=== PATIENT | male | born 1970 | race Caucasian/White ===

== ENCOUNTER 2016-10-30 08:36 | Inpatient (IN) | payer OTHER ==
[2016-10-30 10:07] VITALS: BMI 29.0
--- NOTE | 2016-10-30 15:27 | HP ---
COWS - Scale Resting Pulse: 0= [place] 80 or Below Sweatin= Chills/Flushing Restless Observation: 3= Extraneous Movement Pupil Size: 0= Normal to Room Light Bone or Joint Aches: 4=Acute Joint/Muscle Pain Runny Nose/ Eye Tearin= None GI Upset > 30mins: 1= Stomach Cramp Tremor Observation: 2= Slight Tremor Visible Yawning Observation: 1= 1-2x During Session Anxiety or Irritability: 2=Irritable/Anxious Goose Flesh Skin: 0=Smooth Skin COWS Score: 14 CIWA Score - CIWA Score Nausea/Vomitin-No Nausea/No Vomiting Muscle Tremors: 4-Moderate,w/Arms Extend Anxiety: 4-Mod. Anxious/Guarded Agitation: 4-Moderately Restless Paroxysmal Sweats: 1-Minimal Palms Moist Orientation: 0-Oriented Tacttile Disturbances: 3-Moderate Itch/Numb/Burn Auditory Disturbances: 0-None Visual Disturbances: 0-None Headache: 0-None Present CIWA-Ar Total Score: 16 Admission ROS S - HPI Chief Complaint: DETOX TX FOR HEROIN AND ALCOHOL DEPENDENCE Allergies/Adverse Reactions: Allergies Allergy/AdvReac Type Severity Reaction Status Date / Time No Known Allergies Allergy Verified 10/30/16 13:06 History of Present Illness: 46 Y/O H/M WITH A HX OF ALCOHOL, HEROIN,COCAINE AND MARIJUANA DEPENDENCE SEEKING DETOX TX Exam Limitations: No Limitations - Ebola screening Have you traveled outside of the country in the last 21 days: No Have you had contact with anyone from an Ebola affected area: No Have you been sick,other than usual withdrawal symptoms: No Do you have a fever: No - Review of Systems Constitutional: Chills, Loss of Appetite, Night Sweats, Changes in sleep, Unintentional Wgt. Loss EENT: reports: Blurred Vision Respiratory: reports: No Symptoms reported Cardiac: reports: Lightheadedness GI: reports: Diarrhea, Nausea, Poor Appetite, Vomiting : reports: No Symptoms Reported Musculoskeletal: reports: Back Pain Integumentary: reports: Rash (BOTTOCKS) Neuro: reports: Tremors, Unsteady Gait, Dizziness Endocrine: reports: No Symptoms Reported Hematology: reports: No Symptoms Reported Psychiatric: reports: Orientated x3, Agitated, Anxious Other Systems: Reviewed and Negative Patient History - Patient Medical History Hx Anemia: No Hx Asthma: No Hx Chronic Obstructive Pulmonary Disease (COPD): No Hx Cancer: No Hx Cardiac Disorders: No Hx Congestive Heart Failure: No Hx Hypertension: No Hx Hypercholesterolemia: No Hx Pacemaker: No HX Cerebrovascular Accident: No Hx Seizures: No Hx Diabetes: No Hx Gastrointestinal Disorders: No Hx Genitourinary Disorders: No Hx Sexually Transmitted Disorders: No (DENIES) Hx Renal Disease (ESRD): No Hx Thyroid Disease: No Hx Human Immunodeficiency Virus (HIV): No (NEGATIVE HX) Hx Hepatitis C: No (DENIES) Hx Depression: No Hx Suicide Attempt: No (DENIES) Hx Bipolar Disorder: No Hx Schizophrenia: No - Patient Surgical History Past Surgical History: Yes Hx Neurologic Surgery: No Hx Cataract Extraction: No Hx Cardiac Surgery: No Hx Lung Surgery: No Hx Breast Surgery: No Hx Breast Biopsy: No Hx Abdominal Surgery: No Hx Appendectomy: No Hx Cholecystectomy: No Hx Genitourinary Surgery: No Hx Orthopedic Surgery: No Other Surgical History: polyps removed from throat at 15 years old Anesthesia Reaction: No - PPD History Previous Implant?: Yes Documented Results: Positive w/o proof PPD to be Administered?: No - Reproductive History Patient is a Female of Child Bearing Age (11 -55 yrs old): No (MALE) Patient : (N/C) - Smoking Cessation Smoking history: Current every day smoker Have you smoked in the past 12 months: No Aproximately how many cigarettes per day: 10 Cigars Per Day: 0 Hx Chewing Tobacco Use: No Initiated information on smoking cessation: Yes 'Breaking Loose' booklet given: 10/30/16 - Substance & Tx. History Hx Alcohol Use: Yes (VODKA/BEER) Hx Substance Use: Yes (HEROIN/COCAINE/MARIJUANA) Substance Use Type: Alcohol, Cocaine, Heroin, Marijuana Hx Substance Use Treatment: Yes (LAST TX AT [facility] DETOX) - Substances Abused Heroin Route: Inhalation Frequency: Daily Amount used: 2 bags Age of first use: 45 Date of Last Use: 10/28/16 Crack Route: Smoking Frequency: Daily Amount used: $100 Age of first use: 15 Date of Last Use: 10/29/16 Alcohol-vodka/beer Route: Oral Frequency: Daily Amount used: 2 pts./3-4 6 pks. Age of first use: 15 Date of Last Use: 10/29/16 Marijuana Route: Smoking Frequency: Daily Amount used: $20 Age of first use: 13 Date of Last Use: 10/30/16 Family Disease History - Family Disease History Family Disease History: Heart Disease: Mother (HTN), Other: Father (ESTRANGED), Mother Admission Physical Exam [facility] - Vital Signs Vital Signs: Vital Signs - 24 hr 10/30/16 10:04 Temperature 97.8 F Pulse Rate 70 Respiratory 18 Rate Blood Pressure 118/78 - Physical General Appearance: Yes: Moderate Distress, Irritable, Anxious HEENTM: Yes: EOMI, Normocephalic, ARSALAN, Pharynx Normal Respiratory: Yes: Chest Non-Tender, Lungs Clear, Normal Breath Sounds, No Respiratory Distress Neck: Yes: Supple, Trachea in good position Breast: Yes: Breast Exam Deferred Cardiology: Yes: Regular Rhythm, Regular Rate, S1, S2 Abdominal: Yes: Normal Bowel Sounds, Non Tender, Soft Genitourinary: Yes: Other (N/C) Back: Yes: Within Normal Limits Musculoskeletal: Yes: full range of Motion, Gait Steady Extremities: Yes: Normal Range of Motion, Non-Tender Neurological: Yes: 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 II-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 NML intact, Fully Oriented, Alert, Motor Strength 5/5 Integumentary: Yes: Dry, Warm Lymphatic: Yes: Within Normal Limits - Diagnostic (1) Alcohol dependence with uncomplicated withdrawal Current Visit: Yes Status: Acute (2) Cannabis dependence, uncomplicated Current Visit: Yes Status: Chronic (3) Cocaine dependence, uncomplicated Current Visit: Yes Status: Chronic (4) Nicotine dependence Current Visit: Yes Status: Acute Qualifiers: Nicotine product type: cigarettes Substance use status: in withdrawal Qualified Code(s): F17.213 - Nicotine dependence, cigarettes, with withdrawal (5) Opioid dependence with withdrawal Current Visit: Yes Status: Acute Cleared for Admission [facility] - Detox or Rehab [facility] Level of Care: Medically Managed Detox Regimen/Protocol: Methadone/Librium [facility] Breath Alcohol Content Breath Alcohol Content: 0 Urine Drug Screen - Results Drug Screen Negative: No Urine Drug Screen Results: THC-Marijuana, ALICE-Cocaine, OPI-Opiates
[2016-10-30] MEDS ORDERED: P-EPHED 60MG/TRIPROLIDI 2.5MG TABLET PO PRN (15:34)
[2016-10-30] MEDS ORDERED: IBUPROFEN 400 MG TABLET (FP) PO PRN (15:34)
[2016-10-30] MEDS ORDERED: hydrOXYzine PAMOATE 25 MG CAPSULE (FP) PO PRN (15:34)
[2016-10-30] MEDS ORDERED: MAGNESIUM HYDROX 2400MG/30ML ORAL SUSPENSION 30 ML CUP PO PRN (15:34)
[2016-10-30] MEDS ORDERED: ACETAMINOPHEN 325 MG TABLET (FP) PO PRN (15:34)
[2016-10-30] MEDS ORDERED: guaiFENesin/D-METHORPHAN HB 10 ML UNIT-DOSE CUPS PO PRN (15:34)
[2016-10-30] MEDS ORDERED: chlordiazePOXIDE HCL 25 MG CAPSULE PO PRN (15:34)
[2016-10-30] MEDS ORDERED: MAGNESIUM CITRATE 300 ML BOTTLE PO PRN (15:34)
[2016-10-30] MEDS ORDERED: MAG HYDROX/AL HYDROX/SIMETH 30 ML UNIT-DOSE CUP PO PRN (15:34)
[2016-10-30] MEDS ORDERED: diphenhydrAMINE HCL 50 MG CAPSULE PO PRN (15:34)
[2016-10-30] MEDS ORDERED: MENTHOL/PHENOL 1 EACH UD MM PRN (15:34)
[2016-10-30] MEDS ORDERED: chlordiazePOXIDE HCL 25 MG CAPSULE PO ONE (15:46)
[2016-10-30] MEDS ORDERED: METHADONE HCL 10 MG TABLET (FOR DETOX USE ONLY) PO ONE ×2 (15:47→23:00)
[2016-10-30 17:16] LABS: MCH 31.1 pg (25.7-33.7); MCHC 33.5 g/dl (32.0-35.9); MEAN CELL VOLUME 92.9 fl (80-96); MEAN PLT VOLUME 10.6 fl (7.5-11.1); PLATELET COUNT 221 K/MM3 (134-434); RDW 13.7 % (11.9-15.9); WHITE BLOOD COUNT 8.6 K/mm3 (4.0-10.0)
[2016-10-30] MEDS: chlordiazePOXIDE HCL 25 MG CAPSULE PO SCH ×2 (17:26→22:15)
[2016-10-30] MEDS: NICOTINE 14 MG/24 HOURS TOPICAL PATCH TD SCH (17:26)
[2016-10-30 17:48] LABS: URINE APPEARANCE CLEAR; URINE BILIRUBIN NEGATIVE (NEGATIVE); URINE BLOOD NEGATIVE (NEGATIVE); URINE COLOR YELLOW; URINE GLUCOSE (UA) 1+ (NEGATIVE); URINE KETONE TRACE (NEGATIVE); URINE LEUK ESTERASE NEGATIVE (NEGATIVE); URINE NITRITE NEGATIVE (NEGATIVE); URINE PROTEIN NEGATIVE (NEGATIVE)
[2016-10-30 17:57] LABS: ALBUMIN 3.7 g/dl (3.4-5.0); ALK PHOS 70 U/L (45-117); ANION GAP 8 (8-16); BILIRUBIN,TOTAL 0.5 mg/dL (0.2-1.0); CALCIUM 8.8 mg/dL (8.5-10.1); CO2 26 mmol/L (21-32); CREATININE 0.9 mg/dL (0.7-1.3); GLUCOSE,RANDOM 86 mg/dL (74-106); SGOT/AST 17 U/L (15-37); SGPT/ALT 27 U/L (12-78); TOT PROT 7.1 g/dl (6.4-8.2)
[2016-10-30 18:47] LABS: HIV 1 & 2 AB NEGATIVE; HIV 1 AGp24 NEGATIVE
[2016-10-30] MEDS: THIAMINE HCL 100 MG TABLET (FP) PO SCH (22:15)
[2016-10-31] MEDS: chlordiazePOXIDE HCL 25 MG CAPSULE PO SCH ×4 (05:14→22:38)
--- NOTE | 2016-10-31 08:29 | CONSULT ---
[facility] Psychiatric Consult - Data Date of interview: 10/31/16 Admission source: [facility] Identifying data: This is 46 years old male with no psychiatric hospitalization history intoxicated with: Alcohol, Crack, Heroin, Cannabis, Nicotine, history of PCP abuse as well Substance Abuse History: - Smoking Cessation. Smoking history: Current every day smoker. Have you smoked in the past 12 months: No. Aproximately how many cigarettes per day: 10. Cigars Per Day: 0. Hx Chewing Tobacco Use: No. Initiated information on smoking cessation: Yes. 'Breaking Loose' booklet given : 10/30/16. - Substance & Tx. History. Hx Alcohol Use: Yes (VODKA/BEER). Hx Substance Use: Yes (HEROIN/COCAINE/MARIJUANA). Substance Use Type: Alcohol, Cocaine, Heroin, Marijuana. Hx Substance Use Treatment: Yes (LAST TX AT [facility] DETOX). - Substances Abused. Heroin. Route: Inhalation. Frequency: Daily. Amount used: 2 bags. Age of first use: 45. Date of Last Use: . Crack. Route: Smoking. Frequency: Daily. Amount used: $100. Age of first use: 15. Date of Last Use: 10/29/16. Alcohol-vodka/beer. Route: Oral. Frequency: Daily. Amount used: 2 pts./3-4 6 pks. Age of first use: 15. Date of Last Use: 10/29/16. Marijuana. Route: Smoking. Frequency: Daily. Amount used: $20. Age of first use: 13. Date of Last Use: 10/30/16 Medical History: Denies significant medical issues Psychiatric History: Patient reprots history of anxiety, preoccupied with insomnia asking for Ambien 10mg po qhs Physical/Sexual Abuse/Trauma History: Denies Additional Comment: Ambien 10mg po qhs Mental Status Exam - Mental Status Exam Alert and Oriented to: Person Cognitive Function: Fair Patient Appearance: Well Groomed Mood: Apprehensive Affect: Mood Congruent Patient Behavior: Cooperative Speech Pattern: Appropriate Voice Loudness: Normal Thought Process: Goal Oriented Thought Disorder: Being Controlled Hallucinations: Denies Suicidal Ideation: Denies Homicidal Ideation: Denies Insight/Judgement: Fair Sleep: Difficulty falling asleep Appetite: Fair Muscle strength/Tone: Normal Gait/Station: Normal Additional Comments: Ambien 10mg po qhs Psychiatric Findings - Problem List ([place] 1, 2,3) (1) Alcohol dependence with uncomplicated withdrawal Current Visit: Yes Status: Acute (2) Nicotine dependence Current Visit: Yes Status: Acute Qualifiers: Nicotine product type: cigarettes Substance use status: in withdrawal Qualified Code(s): F17.213 - Nicotine dependence, cigarettes, with withdrawal (3) Opioid dependence with withdrawal Current Visit: Yes Status: Acute (4) Cannabis dependence, uncomplicated Current Visit: Yes Status: Chronic (5) Cocaine dependence, uncomplicated Current Visit: Yes Status: Chronic (6) PCP abuse, continuous Current Visit: No Status: Acute (7) Drug-induced mood disorder Current Visit: Yes Status: Acute - Initial Treatment Plan Initial Treatment Plan: Ambien 10mg po qhs
[2016-10-31] MEDS ORDERED: METHADONE HCL 10 MG TABLET (FOR DETOX USE ONLY) PO SCH (10:00)
[2016-10-31] MEDS: PRENATAL VITAMINS W/ FOLIC ACID TABLET (FP) PO SCH (10:15)
[2016-10-31] MEDS: NICOTINE 14 MG/24 HOURS TOPICAL PATCH TD SCH (10:16)
[2016-10-31] MEDS ORDERED: ZOLPIDEM TARTRATE 5 MG TABLET PO PRN (10:24)
--- NOTE | 2016-10-31 11:51 | PN ---
S CIWA - CIWA Score Nausea/Vomitin Muscle Tremors: 3 Anxiety: 3 Agitation: 3 Paroxysmal Sweats: 1-Minimal Palms Moist Orientation: 0-Oriented Tacttile Disturbances: 1-Very Mild Itch/Numbness Auditory Disturbances: 1-Very Mild Visual Disturbances: 1-Very Mild Sensitivity Headache: 2-Mild CIWA-Ar Total Score: 18 BHS COWS - Scale Resting Pulse: 0= [place] 80 or Below Sweatin= Chills/Flushing Restless Observation: 3= Extraneous Movement Pupil Size: 1= Pupils >than Normal Bone or Joint Aches: 2= Severe Diffuse Aches Runny Nose/ Eye Tearin= Runny Nose/Eyes GI Upset > 30mins: 2= Nausea/Diarrhea Tremor Observation of Outstretched Hands: 2= Slight Tremor Visible Yawning Observation: 1= 1-2x During Session Anxiety or Irritability: 2=Irritable/Anxious Goose Flesh Skin: 0=Smooth Skin COWS Score: 16 S Progress Note (SOAP) Subjective: ALERT,IRRITABLE,ANXIOUS,INTERRUPTED SLEEP,PAIN IN THE BODY AND BACK,TREMOR Objective: 10/31/16 11:49 Vital Signs Temperature 97.8 F 10/31/16 10:00 Pulse Rate 69 10/31/16 10:00 Respiratory Rate 18 10/31/16 10:00 Blood Pressure 101/74 10/31/16 10:00 O2 Sat by Pulse Oximetry (%) EKG NSR,NORMAL ECG Laboratory Last Values WBC 8.6 K/mm3 (4.0-10.0) 10/30/16 15:00 RBC 4.71 M/mm3 (4.00-5.60) 10/30/16 15:00 Hgb 14.6 GM/dL (11.7-16.9) 10/30/16 15:00 Hct 43.8 % (35.4-49) 10/30/16 15:00 MCV 92.9 fl (80-96) 10/30/16 15:00 MCH 31.1 pg (25.7-33.7) 10/30/16 15:00 MCHC 33.5 g/dl (32.0-35.9) 10/30/16 15:00 RDW 13.7 % (11.9-15.9) 10/30/16 15:00 Plt Count 221 K/MM3 (134-434) 10/30/16 15:00 MPV 10.6 fl (7.5-11.1) 10/30/16 15:00 Sodium 141 mmol/L (136-145) 10/30/16 15:00 Potassium 4.4 mmol/L (3.5-5.1) 10/30/16 15:00 Chloride 107 mmol/L (98-107) 10/30/16 15:00 Carbon Dioxide 26 mmol/L (21-32) 10/30/16 15:00 Anion Gap 8 (8-16) 10/30/16 15:00 BUN 15 mg/dL (7-18) 10/30/16 15:00 Creatinine 0.9 mg/dL (0.7-1.3) 10/30/16 15:00 Creat Clearance w eGFR > 60 (>60) 10/30/16 15:00 Random Glucose 86 mg/dL (74-106) 10/30/16 15:00 Calcium 8.8 mg/dL (8.5-10.1) 10/30/16 15:00 Total Bilirubin 0.5 mg/dL (0.2-1.0) 10/30/16 15:00 AST 17 U/L (15-37) D 10/30/16 15:00 ALT 27 U/L (12-78) 10/30/16 15:00 Alkaline Phosphatase 70 U/L (45-117) 10/30/16 15:00 Total Protein 7.1 g/dl (6.4-8.2) 10/30/16 15:00 Albumin 3.7 g/dl (3.4-5.0) 10/30/16 15:00 Urine Color Yellow 10/30/16 17:06 Urine Appearance Clear 10/30/16 17:06 Urine pH 5.0 (5.0-8.0) 10/30/16 17:06 Ur Specific [place] >= 1.030 (1.005-1.025) H 10/30/16 17:06 Urine Protein Negative (NEGATIVE) 10/30/16 17:06 Urine Glucose (UA) 1+ (NEGATIVE) H 10/30/16 17:06 Urine Ketones Trace (NEGATIVE) H 10/30/16 17:06 Urine Blood Negative (NEGATIVE) 10/30/16 17:06 Urine Nitrite Negative (NEGATIVE) 10/30/16 17:06 Urine Bilirubin Negative (NEGATIVE) 10/30/16 17:06 Urine Urobilinogen 2.0 mg/dL (0.2-1.0) 10/30/16 17:06 Ur Leukocyte Esterase Negative (NEGATIVE) 10/30/16 17:06 RPR Titer Nonreactive (NONREACTIVE) 10/30/16 15:00 HIV 1&2 Antibody Screen Negative 10/30/16 14:00 HIV P24 Antigen Negative 10/30/16 14:00 Assessment: 10/31/16 11:50 WITHDRAWAL SYMPTOM Plan: CONTINUE DETOX
--- NOTE | 2016-10-31 16:37 | EKG ---
Test Reason : Blood Pressure : / mmHG Vent. Rate : 066 BPM Atrial Rate : 066 BPM P-R Int : 142 ms QRS Dur : 090 ms QT Int : 392 ms P-R-T Axes : 048 037 026 degrees QTc Int : 410 ms NORMAL SINUS RHYTHM NORMAL ECG NO PREVIOUS ECGS AVAILABLE Confirmed by TAMAR FROST MD ([id number]) on 10/31/2016 4:37:19 PM Referred By: Derek Neville Confirmed By:TAMAR FROST MD
[2016-10-31] MEDS: THIAMINE HCL 100 MG TABLET (FP) PO SCH (22:38)
[2016-10-31] MEDS: ZOLPIDEM TARTRATE 10 MG TABLET (PARK CARE ONLY) PO PRN (22:39)
[2016-11-01] MEDS: chlordiazePOXIDE HCL 25 MG CAPSULE PO SCH ×2 (05:52→10:22)
[2016-11-01] MEDS ORDERED: TRIMETHOBENZAMIDE HCL 200MG/2ML INJ IM PRN (08:53)
[2016-11-01] MEDS: NICOTINE 14 MG/24 HOURS TOPICAL PATCH TD SCH (10:22)
[2016-11-01] MEDS: METHADONE HCL 5 MG TABLET (FOR DETOX USE ONLY) PO SCH (10:22)
[2016-11-01] MEDS: PRENATAL VITAMINS W/ FOLIC ACID TABLET (FP) PO SCH (10:22)
--- NOTE | 2016-11-01 11:43 | PN ---
[facility] CIWA - CIWA Score Nausea/Vomitin-Int. Nausea w/Dry Heave Muscle Tremors: 2 Anxiety: 3 Agitation: 3 Paroxysmal Sweats: 3 Orientation: 0-Oriented Tacttile Disturbances: 1-Very Mild Itch/Numbness Auditory Disturbances: 0-None Visual Disturbances: 0-None Headache: 0-None Present CIWA-Ar Total Score: 16 BHS COWS - Scale Resting Pulse: 0= [place] 80 or Below Sweatin= Chills/Flushing Restless Observation: 1= Difficult to Sit Still Pupil Size: 1= Pupils >than Normal Bone or Joint Aches: 1= Mild Discomfort Runny Nose/ Eye Tearin= Nasal Congestion GI Upset > 30mins: 3= Vomiting/Diarrhea Tremor Observation of Outstretched Hands: 2= Slight Tremor Visible Yawning Observation: 0= None Anxiety or Irritability: 2=Irritable/Anxious Goose Flesh Skin: 0=Smooth Skin COWS Score: 12 S Progress Note (SOAP) Subjective: interrupted sleep, sweats, vomiting Objective: 11/01/16 11:42 Vital Signs Temperature 98.1 F 11/01/16 10:00 Pulse Rate 80 11/01/16 10:00 Respiratory Rate 18 11/01/16 10:00 Blood Pressure 106/64 11/01/16 10:00 O2 Sat by Pulse Oximetry (%) Laboratory Tests 10/30/16 10/30/16 10/30/16 14:00 15:00 15:00 WBC 8.6 RBC 4.71 Hgb 14.6 Hct 43.8 MCV 92.9 MCH 31.1 MCHC 33.5 RDW 13.7 Plt Count 221 MPV 10.6 Sodium 141 Potassium 4.4 Chloride 107 Carbon Dioxide 26 Anion Gap 8 BUN 15 Creatinine 0.9 Creat Clearance w eGFR > 60 Random Glucose 86 Calcium 8.8 Total Bilirubin 0.5 AST 17 D ALT 27 Alkaline Phosphatase 70 Total Protein 7.1 Albumin 3.7 Urine Color Urine Appearance Urine pH Ur Specific [place] Urine Protein Urine Glucose (UA) Urine Ketones Urine Blood Urine Nitrite Urine Bilirubin Urine Urobilinogen Ur Leukocyte Esterase RPR Titer HIV 1&2 Antibody Screen Negative HIV P24 Antigen Negative 10/30/16 10/30/16 15:00 17:06 WBC RBC Hgb Hct MCV MCH MCHC RDW Plt Count MPV Sodium Potassium Chloride Carbon Dioxide Anion Gap BUN Creatinine Creat Clearance w eGFR Random Glucose Calcium Total Bilirubin AST ALT Alkaline Phosphatase Total Protein Albumin Urine Color Yellow Urine Appearance Clear Urine pH 5.0 Ur Specific [place] >= 1.030 H Urine Protein Negative Urine Glucose (UA) 1+ H Urine Ketones Trace H Urine Blood Negative Urine Nitrite Negative Urine Bilirubin Negative Urine Urobilinogen 2.0 Ur Leukocyte Esterase Negative RPR Titer Nonreactive HIV 1&2 Antibody Screen HIV P24 Antigen pt aox3 vomiting Assessment: 11/01/16 11:42 withdrawal sx;s Plan: cont. detox increase fluids zofran prn pt refused im tigan
[2016-11-01] MEDS: chlordiazePOXIDE 5 MG CAPSULE PO SCH ×2 (17:24→22:13)
[2016-11-01] MEDS: ONDANSETRON *ODT* 4 MG TABLET SL PRN (18:55)
[2016-11-01] MEDS: NICOTINE POLACRILEX 2 MG GUM BC PRN (21:08)
[2016-11-01] MEDS: ZOLPIDEM TARTRATE 10 MG TABLET (PARK CARE ONLY) PO PRN (22:13)
[2016-11-01] MEDS: THIAMINE HCL 100 MG TABLET (FP) PO SCH (22:14)
[2016-11-02] MEDS: chlordiazePOXIDE 5 MG CAPSULE PO SCH ×2 (06:15→11:23)
[2016-11-02] MEDS: ONDANSETRON *ODT* 4 MG TABLET SL PRN (11:23)
[2016-11-02] MEDS: METHADONE HCL 5 MG TABLET (FOR DETOX USE ONLY) PO SCH (11:23)
[2016-11-02] MEDS: PRENATAL VITAMINS W/ FOLIC ACID TABLET (FP) PO SCH (11:23)
[2016-11-02] MEDS: NICOTINE 14 MG/24 HOURS TOPICAL PATCH TD SCH (11:24)
--- NOTE | 2016-11-02 14:49 | PN ---
[facility]HS Progress Note (SOAP) Subjective: alert,irritable,anxious,interrupted sleep,tremor,pain in the body and back Objective: 11/02/16 14:48 Vital Signs Temperature 97.0 F L 11/02/16 14:27 Pulse Rate 74 11/02/16 14:27 Respiratory Rate 18 11/02/16 14:27 Blood Pressure 121/70 11/02/16 14:27 O2 Sat by Pulse Oximetry (%) Assessment: 11/02/16 14:48 withdrawal symptom Plan: continue detox
[2016-11-02] MEDS ORDERED: chlordiazePOXIDE 5 MG CAPSULE ONE ×2 (17:15→21:44)
[2016-11-02] MEDS: chlordiazePOXIDE HCL 10 MG CAPSULE PO SCH ×2 (20:14→22:16)
[2016-11-02] MEDS: ZOLPIDEM TARTRATE 10 MG TABLET (PARK CARE ONLY) PO PRN (22:16)
[2016-11-02] MEDS: THIAMINE HCL 100 MG TABLET (FP) PO SCH (22:16)
[2016-11-03] MEDS ORDERED: chlordiazePOXIDE 5 MG CAPSULE ONE ×2 (04:31→09:02)
[2016-11-03] MEDS: chlordiazePOXIDE HCL 10 MG CAPSULE PO SCH ×2 (05:59→10:18)
[2016-11-03] MEDS ORDERED: METHADONE HCL 10 MG TABLET (FOR DETOX USE ONLY) PO SCH (10:00)
[2016-11-03] MEDS: PRENATAL VITAMINS W/ FOLIC ACID TABLET (FP) PO SCH (10:17)
[2016-11-03] MEDS: NICOTINE 14 MG/24 HOURS TOPICAL PATCH TD SCH (10:19)
--- NOTE | 2016-11-03 11:28 | PN ---
S Progress Note (SOAP) Subjective: ALERT,IRRITABLE,ANXIOUS,INTERRUPTED SLEEP Objective: 11/03/16 11:27 Vital Signs Temperature 98.1 F 11/03/16 10:00 Pulse Rate 82 11/03/16 10:00 Respiratory Rate 18 11/03/16 10:00 Blood Pressure 122/62 11/03/16 10:00 O2 Sat by Pulse Oximetry (%) Assessment: 11/03/16 11:27 WITHDRAWAL SYMPTOM Plan: CONTINUE DETOX,DISCHARGE IN AM
[2016-11-03] MEDS: NICOTINE POLACRILEX 2 MG GUM BC PRN (19:19)
[2016-11-03] MEDS: ZOLPIDEM TARTRATE 10 MG TABLET (PARK CARE ONLY) PO PRN (22:20)
[2016-11-03] MEDS: THIAMINE HCL 100 MG TABLET (FP) PO SCH (22:20)
[2016-11-03] MEDS: LOPERAMIDE HCL 2 MG CAPSULE PO PRN (22:45)
[2016-11-04] MEDS ORDERED: METHADONE HCL 5 MG TABLET (FOR DETOX USE ONLY) PO SCH (06:00)
[2016-11-04] MEDS: LOPERAMIDE HCL 2 MG CAPSULE PO PRN (06:13)
--- NOTE | 2016-11-04 08:55 | DS ---
[facility] Detox Discharge Summary Admission Date: 10/30/16 Discharge Date: 11/04/16 - History Present History: Alcohol Dependence, Cannabis Dependence, Cocaine Dependence, Opioid Dependence, Pcp Dependence - Physical Exam Results Vital Signs: Vital Signs Temperature 97.2 F L 11/04/16 06:19 Pulse Rate 75 11/04/16 06:19 Respiratory Rate 18 11/04/16 06:19 Blood Pressure 107/63 11/04/16 06:19 O2 Sat by Pulse Oximetry (%) - Treatment Hospital Course: Detox Protocol Followed, Detoxed Safely, Responded well, Discharged Condition Good, Rehab Referral Accepted - Medication Discharge Medications: Ambulatory Orders NK [No Known Home Medication] 10/30/16 - Diagnosis (1) Alcohol dependence with uncomplicated withdrawal Current Visit: Yes Status: Chronic (2) Drug-induced mood disorder Current Visit: Yes Status: Chronic (3) Nicotine dependence Current Visit: Yes Status: Chronic Qualifiers: Nicotine product type: cigarettes Substance use status: uncomplicated Qualified Code(s): F17.210 - Nicotine dependence, cigarettes, uncomplicated (4) Opioid dependence with withdrawal Current Visit: Yes Status: Chronic (5) Cannabis dependence, uncomplicated Current Visit: Yes Status: Chronic (6) Cocaine dependence, uncomplicated Current Visit: Yes Status: Chronic (7) PCP abuse, continuous Current Visit: Yes Status: Chronic (8) Sprain of wrist Current Visit: Yes Status: Acute Qualifiers: Encounter type: initial encounter Laterality: right Qualified Code( s): S63.501A - Unspecified sprain of right wrist, initial encounter - AMA Did Patient Leave Against Medical Advice: No ([facility])
[2016-11-04 10:08] VITALS: BP 105/71; PULSE 86; TEMP 96.8
== END 2016-11-04 08:58 | disposition home or self-care (01) | DRG 773 ==
LOC: YASAS 08:36 → Y6N 13:44
PROVIDERS: ADMIT Internal Medicine Addiction Medicine; ATTEND Internal Medicine Addiction Medicine
PROC: HZ2ZZZZ Detoxification Services for Substance Abuse Treatment (ICD-10-PCS; principal; 2016-10-30)
DX: F11.23 Opioid dependence with withdrawal (principal); F10.230 Alcohol dependence with withdrawal, uncomplicated; F14.20 Cocaine dependence, uncomplicated; F12.20 Cannabis dependence, uncomplicated; F16.10 Hallucinogen abuse, uncomplicated; F17.210 Nicotine dependence, cigarettes, uncomplicated; F19.24 Other psychoactive substance dependence with psychoactive substance-induced mood disorder
CPT/HCPCS: 36415; 80053; 81003; 85027; 86593; 87389; 93005; 93010

== ENCOUNTER 2018-07-19 19:24 | Inpatient (IN) | payer OTHER ==
--- NOTE | 2018-07-19 22:13 | HP ---
CIWA Score Nausea/Vomitin Muscle Tremors: 4-Moderate,w/Arms Extend Anxiety: 4-Mod. Anxious/Guarded Agitation: 4-Moderately Restless Paroxysmal Sweats: 3 Orientation: 2-Disoriented Date<2 days Tacttile Disturbances: 2-Mild Itch/Numbness/Burn Auditory Disturbances: 0-None Visual Disturbances: 0-None Headache: 2-Mild CIWA-Ar Total Score: 24 - Admission Criteria OASAS Guidelines: Admission for Medically Managed Detox: Requires at least one of the followin. CIWA greater than 12 2. Seizures within the past 24 hours 3. Delirium tremens within the past 24 hours 4. Hallucinations within the past 24 hours 5. Acute intervention needed for co occurring medical disorder 6. Acute intervention needed for co occurring psychiatric disorder 7. Severe withdrawal that cannot be handled at a lower level of care (continued vomiting, continued diarrhea, abnormal vital signs) requiring intravenous medication and/or fluids 8. Patient presents the following: CIWA greater than 12 Admission Criteria Met: Admission criteria met Admission ROS [facility] Chief Complaint: C/O WITHDRAWAL SX'S. SEEKING DETOX TXMENT Allergies/Adverse Reactions: Allergies Allergy/AdvReac Type Severity Reaction Status Date / Time No Known Allergies Allergy Verified 10/30/16 13:06 History of Present Illness: 47 Y.O. MALE WITH HX/O ALCOHOLISM HERE FOR DETOX. CLIENT IS SELF REFERRED. KNOWN TO THE PROGRAM,LAST ADMISSION 2016. PRESENTS TODAY WITH C/O WORSENING WITHDRAWAL SX'S. CIWA 24. HE ALSO REPORTS ILLICIT SUBSTANCE ABUSE TO INCLUDE CANNABIS, COCAINE, AND METHAMPHETAMINES. DENIES HX/O SZ, SI/HI. DOES REPORT AVH WHEN HE IS "HIGH". PRESENTLY DENIES. DENIES ANY SIGNIFICANT PERIOD OF SOBRIETY/ CLEAN TIME. LIVES WITH MOTHER. DENIES LEGALS. Exam Limitations: No Limitations - Ebola screening Have you traveled outside of the country in the last 21 days: No (N) Have you had contact with anyone from an Ebola affected area: No Do you have a fever: No - Review of Systems Constitutional: Chills, Loss of Appetite, Night Sweats, Changes in sleep EENT: reports: No Symptoms Reported Respiratory: reports: Other (HX/O TB WITH TXMENT) Cardiac: reports: No Symptoms Reported GI: reports: Poor Appetite, Poor Fluid Intake, Vomiting : reports: Other (HX/O RENAL CALCULI) Musculoskeletal: reports: Joint Pain (CHRONIC) Integumentary: reports: Rash (BILAT BUTTOCKS ASSOCIATED WITH PRURITIS,) Neuro: reports: Headache, Tremors (FLET) Endocrine: reports: No Symptoms Reported Hematology: reports: No Symptoms Reported Psychiatric: reports: Anxious, Depressed (INTERMITTENT) Other Systems: Reviewed and Negative Patient History - Patient Medical History Hx Anemia: No Hx Asthma: No Hx Chronic Obstructive Pulmonary Disease (COPD): No Hx Cancer: No Hx Cardiac Disorders: No Hx Congestive Heart Failure: No Hx Hypertension: No Hx Hypercholesterolemia: No Hx Pacemaker: No HX Cerebrovascular Accident: No Hx Seizures: No Hx Diabetes: No Hx Gastrointestinal Disorders: No Hx Genitourinary Disorders: No Hx Sexually Transmitted Disorders: No Hx Renal Disease (ESRD): No Hx Thyroid Disease: No Hx Human Immunodeficiency Virus (HIV): No Hx Hepatitis C: No Hx Depression: No Hx Suicide Attempt: No Hx Bipolar Disorder: No Hx Schizophrenia: No - Patient Surgical History Past Surgical History: Yes Hx Neurologic Surgery: No Hx Cataract Extraction: No Hx Cardiac Surgery: No Hx Lung Surgery: No Hx Breast Surgery: No Hx Breast Biopsy: No Hx Abdominal Surgery: No Hx Appendectomy: No Hx Cholecystectomy: No Hx Genitourinary Surgery: No Hx Section: No Hx Orthopedic Surgery: No Other Surgical History: polyps removed from throat at 15 years old Anesthesia Reaction: No - PPD History Previous Implant?: Yes Documented Results: Negative w/o proof Implanted On Prior R Admission?: No PPD to be Administered?: No - Smoking Cessation Smoking history: Current every day smoker Have you smoked in the past 12 months: No Aproximately how many cigarettes per day: 20 Cigars Per Day: 0 Hx Chewing Tobacco Use: No Initiated information on smoking cessation: Yes 'Breaking Loose' booklet given: 07/19/18 - Substance & Tx. History Hx Alcohol Use: Yes Hx Substance Use: Yes Substance Use Type: Alcohol, Cocaine, Marijuana Hx Substance Use Treatment: Yes ([facility]) - Substances abused Alcohol Other (specify): VODKA Substance route: Oral Frequency: Daily Amount used: 3 PINTS Age of first use: 14 Date of last use: 07/19/18 (1 PINT) Family Disease History - Family Disease History Family Disease History: Heart Disease: Mother (HTN), Other: Father (ESTRANGED), Mother Admission Physical Exam [facility] - Physical General Appearance: Yes: Mild Distress, Tremorous (FELT), Anxious, Other ( FLUSHED FACE) HEENTM: Yes: EOMI, Normocephalic, Normal Voice, ARSALAN, Pharynx Normal Respiratory: Yes: Chest Non-Tender, Lungs Clear, Normal Breath Sounds, No Respiratory Distress, No Accessory Muscle Use Neck: Yes: No masses,lesions,Nodules, Supple, Trachea in good position Breast: Yes: Breast Exam Deferred Cardiology: Yes: Regular Rhythm, Regular Rate, S1, S2 Abdominal: Yes: Non Tender, Soft, Increased Bowel Sounds Genitourinary: Yes: Within Normal Limits Back: Yes: Normal Inspection Musculoskeletal: Yes: full range of Motion, Gait Steady Extremities: Yes: Normal Capillary Refill, Normal Range of Motion, Non-Tender, Tremors (FELT) Neurological: Yes: boat loader II-XII NML intact, Fully Oriented, Alert, Motor Strength 5/5, Depressed Affect Integumentary: Yes: Dry, Warm (FLUSHED) Lymphatic: Yes: Within Normal Limits - Diagnostic (1) At risk for dehydration due to poor fluid intake Current Visit: Yes Status: Acute (2) Alcohol dependence with uncomplicated withdrawal Current Visit: Yes Status: Acute (3) Cannabis dependence, uncomplicated Current Visit: Yes Status: Acute (4) Cocaine dependence, uncomplicated Current Visit: Yes Status: Acute (5) Drug-induced mood disorder Current Visit: Yes Status: Acute (6) Nicotine dependence Current Visit: Yes Status: Chronic Qualifiers: Nicotine product type: cigarettes Substance use status: uncomplicated Qualified Code(s): F17.210 - Nicotine dependence, cigarettes, uncomplicated (7) PCP abuse, continuous Current Visit: Yes Status: Acute Cleared for Admission [facility] - Detox or Rehab [facility] Level of Care: Medically Managed Detox Regimen/Protocol: Librium Claeared for Rehab Admission: No Breathalyzer - Breathalyzer Breathalyzer: 0 Urine Drug Screen - Test Device Lot number: [id number] Expiration date: 07/12/19 - Control Is test valid?: Yes - Results Drug screen NEGATIVE: No Urine drug screen results: THC-Marijuana, ALICE-Cocaine, MET-Methamphetamine Inpatient Rehab Admission - Rehab Decision to Admit Inpatient rehab admission?: No
[2018-07-19] MEDS ORDERED: MAGNESIUM CITRATE 300 ML BOTTLE PO PRN (22:21)
[2018-07-19] MEDS ORDERED: METHOCARBAMOL 500 MG TABLET PO PRN (22:21)
[2018-07-19] MEDS ORDERED: IBUPROFEN 400 MG TABLET (FP) PO PRN (22:21)
[2018-07-19] MEDS ORDERED: DICYCLOMINE HCL 10 MG CAPSULE PO PRN (22:21)
[2018-07-19] MEDS ORDERED: MENTHOL/PHENOL 1 EACH UD MM PRN (22:21)
[2018-07-19] MEDS ORDERED: P-EPHED 60MG/TRIPROLIDI 2.5MG TABLET PO PRN (22:21)
[2018-07-19] MEDS ORDERED: NICOTINE POLACRILEX 2 MG GUM BUC PRN (22:21)
[2018-07-19] MEDS ORDERED: MAG HYDROX/AL HYDROX/SIMETH 30 ML UNIT-DOSE CUP PO PRN (22:21)
[2018-07-19] MEDS ORDERED: MAGNESIUM HYDROX 2400MG/30ML ORAL SUSPENSION 30 ML CUP PO PRN (22:21)
[2018-07-19] MEDS ORDERED: ACETAMINOPHEN 325 MG TABLET (FP) PO PRN ×2 (22:21)
[2018-07-19] MEDS ORDERED: BISMUTH SUBSALICYLATE 524 MG/30 ML UD PO PRN (22:21)
[2018-07-19] MEDS ORDERED: guaiFENesin 200 MG/10 ML 10 ML UNIT-DOSE CUPS PO PRN (22:21)
[2018-07-19] MEDS ORDERED: chlordiazePOXIDE HCL 25 MG CAPSULE PO PRN (22:21)
[2018-07-19] MEDS ORDERED: ONDANSETRON *ODT* 4 MG TABLET SL PRN (22:21)
[2018-07-19] MEDS ORDERED: hydrOXYzine PAMOATE 25 MG CAPSULE (FP) PO PRN (22:21)
[2018-07-19 22:29] VITALS: BMI 32.5
[2018-07-19] MEDS: chlordiazePOXIDE HCL 25 MG CAPSULE PO SCH (22:49)
[2018-07-19] MEDS: MELATONIN 5 MG TABLETS PO PRN (22:49)
[2018-07-20] MEDS: chlordiazePOXIDE HCL 25 MG CAPSULE PO SCH ×4 (06:29→22:17)
--- NOTE | 2018-07-20 09:43 | PN ---
S CIWA - CIWA Score Nausea/Vomitin-Mild Nausea/No Vomiting Muscle Tremors: 4-Moderate,w/Arms Extend Anxiety: 4-Mod. Anxious/Guarded Agitation: 4-Moderately Restless Paroxysmal Sweats: 1-Minimal Palms Moist Orientation: 3-Disoriented Date>2 days Tacttile Disturbances: 0-None Auditory Disturbances: 0-None Visual Disturbances: 0-None Headache: 2-Mild CIWA-Ar Total Score: 19 [facility] Progress Note (SOAP) Subjective: longest sobriety 30 days, encourage the patient to engage with 12 step support group with commitment patient is willing to connect with 12 step meeting upon discharge Objective: 07/20/18 09:43 Vital Signs Temperature 98.2 F 07/20/18 09:39 Pulse Rate 85 07/20/18 09:39 Respiratory Rate 18 07/20/18 09:39 Blood Pressure 104/65 07/20/18 09:39 O2 Sat by Pulse Oximetry (%) 07/20/18 09:43 lab pending Assessment: 07/20/18 09:44 alcohol withdrawal sx Plan: continue detox
[2018-07-20] MEDS: NICOTINE 21 MG/24 HOURS TOPICAL PATCH TD SCH (10:09)
[2018-07-20] MEDS: PRENATAL VITAMINS W/ FOLIC ACID TABLET (FP) PO SCH (10:09)
[2018-07-20 10:19] LABS: HEMATOCRIT 44.4 % (35.4-49); HEMOGLOBIN 15.1 GM/dL (11.7-16.9); MCHC 34.1 g/dl (32.0-35.9); MEAN PLT VOLUME 9.2 fl (7.5-11.1); PLATELET COUNT 250 K/MM3 (134-434); RBC 4.88 M/mm3 (4.00-5.60); RDW 13.6 % (11.9-15.9); WHITE BLOOD COUNT 8.5 K/mm3 (4.0-10.0)
[2018-07-20 10:22] LABS: ALBUMIN 3.8 g/dl (3.4-5.0); ALK PHOS 76 U/L (45-117); ANION GAP 6 MMOL/L (8-16); BILIRUBIN,TOTAL 0.7 mg/dL (0.2-1); BLOOD UREA NITROGEN 19 mg/dL (7-18); CALCIUM 8.6 mg/dL (8.5-10.1); CHLORIDE 106 mmol/L (98-107); CO2 30 mmol/L (21-32); CREATININE 1.1 mg/dL (0.55-1.3); GLUCOSE,RANDOM 94 mg/dL (74-106); POTASSIUM 4.2 mmol/L (3.5-5.1); SGOT/AST 17 U/L (15-37); SGPT/ALT 22 U/L (13-61); SODIUM 142 mmol/L (136-145); TOT PROT 7.3 g/dl (6.4-8.2)
--- NOTE | 2018-07-20 13:49 | CONSULT ---
[facility] Psychiatric Consult - Data Date of interview: 07/20/18 Admission source: [facility] Identifying data: Readmission to [facility] for this 47 y/o male self- referred for detoxification treatment (cannabis, alcohol, cocaine). Examined on . 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 Substance Abuse History: Confirmed by patient in this session. Mr Bowman declares that he " binges " on alchol + drugs. " I don't necessarily use on a daily basis ". Started using " everything " at age 13. Sporadic use of phencyclidine and ecstasy (self-report). Details in current [facility] report as follows : Smoking history: Current every day smoker. Have you smoked in the past 12 months: No. Aproximately how many cigarettes per day: 20. Cigars Per Day: 0. Hx Chewing Tobacco Use: No. Initiated information on smoking cessation : Yes. 'Breaking Loose' booklet given: 07/19/18. - Substance & Tx. History. Hx Alcohol Use: Yes. Hx Substance Use: Yes. Substance Use Type: Alcohol, Cocaine, Marijuana. Hx Substance Use Treatment: Yes ([facility]). - Substances abused. Alcohol. Other (specify): VODKA. Substance route: Oral. Frequency : Daily. Amount used: 3 PINTS. Age of first use: 14. Date of last use: (1 PINT) Medical History: Patient endorses good general health. distant history of surgery (removal of laryngeal polyps at age 15). Psychiatric History: Patient denies history of psychiatric hospitalizations or OPD care. No reported history of suicide attempts. Physical/Sexual Abuse/Trauma History: Patient reports a heavy history of incarceration (20 years cumulatively) for various offenses related to violence ( armed robbery). Not on parole or probation. Additional Comment: Urine drug screen results: THC-Marijuana, ALICE-Cocaine, MET- Methamphetamine. Noted. Mental Status Exam - Mental Status Exam Alert and Oriented to: Time, Place, Person Cognitive Function: Good Patient Appearance: Well Groomed (tattoos on both arms + forearms) Mood: Nervous, Withdrawn Affect: Mood Congruent, Constricted Patient Behavior: Fatigued, Cooperative Speech Pattern: Clear, Appropriate Voice Loudness: Normal Thought Process: Goal Oriented Thought Disorder: Not Present Hallucinations: Denies Suicidal Ideation: Denies Homicidal Ideation: Denies Insight/Judgement: Poor Sleep: Well Appetite: Good Muscle strength/Tone: Normal Gait/Station: Normal Psychiatric Findings - Problem List ([place] 1, 2,3) (1) Alcohol dependence with uncomplicated withdrawal Current Visit: Yes Status: Acute (2) Cannabis dependence, uncomplicated Current Visit: Yes Status: Chronic (3) Cocaine dependence, uncomplicated Current Visit: Yes Status: Chronic (4) Drug-induced mood disorder Current Visit: Yes Status: Chronic (5) Nicotine dependence Current Visit: Yes Status: Chronic Qualifiers: Nicotine product type: cigarettes Substance use status: uncomplicated Qualified Code(s): F17.210 - Nicotine dependence, cigarettes, uncomplicated - Initial Treatment Plan Initial Treatment Plan: Psychiatric interview conducted with students in attendance (with patient's permission). Psychoeducation. Sleep hygiene. Detoxification. Support. Relapse prevention : discussed with the patient. AA/NA meetings. Rehabilitation recommended by patient declines. Made aware of importance of lifestyle changes + drug abstinence. Observation.
[2018-07-20] MEDS ORDERED: THIAMINE HCL 100 MG TABLET (FP) PO SCH (22:00)
[2018-07-20] MEDS: MELATONIN 5 MG TABLETS PO PRN (22:17)
[2018-07-21] MEDS: chlordiazePOXIDE HCL 25 MG CAPSULE PO SCH ×2 (06:57→10:16)
[2018-07-21] MEDS: PRENATAL VITAMINS W/ FOLIC ACID TABLET (FP) PO SCH (10:16)
[2018-07-21] MEDS: NICOTINE 21 MG/24 HOURS TOPICAL PATCH TD SCH (10:17)
--- NOTE | 2018-07-21 10:50 | PN ---
S CIWA - CIWA Score Nausea/Vomitin-Mild Nausea/No Vomiting Muscle Tremors: 4-Moderate,w/Arms Extend Anxiety: 3 Agitation: 2 Paroxysmal Sweats: 1-Minimal Palms Moist Orientation: 2-Disoriented Date<2 days Tacttile Disturbances: 0-None Auditory Disturbances: 0-None Visual Disturbances: 0-None Headache: 1-Very Mild CIWA-Ar Total Score: 14 [facility] Progress Note (SOAP) Subjective: feeling better today resting on bed able to sleep throughout the night Objective: 07/21/18 10:47 Vital Signs Temperature 97.4 F L 07/21/18 09:01 Pulse Rate 90 07/21/18 09:01 Respiratory Rate 20 07/21/18 09:01 Blood Pressure 114/74 07/21/18 09:01 O2 Sat by Pulse Oximetry (%) Laboratory Last Values WBC 8.5 K/mm3 (4.0-10.0) 07/20/18 07:00 RBC 4.88 M/mm3 (4.00-5.60) 07/20/18 07:00 Hgb 15.1 GM/dL (11.7-16.9) 07/20/18 07:00 Hct 44.4 % (35.4-49) 07/20/18 07:00 MCV 91.0 fl (80-96) 07/20/18 07:00 MCH 31.0 pg (25.7-33.7) 07/20/18 07:00 MCHC 34.1 g/dl (32.0-35.9) 07/20/18 07:00 RDW 13.6 % (11.9-15.9) 07/20/18 07:00 Plt Count 250 K/MM3 (134-434) 07/20/18 07:00 MPV 9.2 fl (7.5-11.1) D 07/20/18 07:00 Sodium 142 mmol/L (136-145) 07/20/18 07:00 Potassium 4.2 mmol/L (3.5-5.1) 07/20/18 07:00 Chloride 106 mmol/L (98-107) 07/20/18 07:00 Carbon Dioxide 30 mmol/L (21-32) 07/20/18 07:00 Anion Gap 6 MMOL/L (8-16) L 07/20/18 07:00 BUN 19 mg/dL (7-18) H 07/20/18 07:00 Creatinine 1.1 mg/dL (0.55-1.3) 07/20/18 07:00 Creat Clearance w eGFR 71.75 (>60) 07/20/18 07:00 Random Glucose 94 mg/dL (74-106) 07/20/18 07:00 Calcium 8.6 mg/dL (8.5-10.1) 07/20/18 07:00 Total Bilirubin 0.7 mg/dL (0.2-1) 07/20/18 07:00 AST 17 U/L (15-37) 07/20/18 07:00 ALT 22 U/L (13-61) 07/20/18 07:00 Alkaline Phosphatase 76 U/L (45-117) 07/20/18 07:00 Total Protein 7.3 g/dl (6.4-8.2) 07/20/18 07:00 Albumin 3.8 g/dl (3.4-5.0) 07/20/18 07:00 RPR Titer Nonreactive (NONREACTIVE) 07/20/18 07:00 lab noted Assessment: 07/21/18 10:49 alcohol withdrawal sx Plan: continue detox
[2018-07-21 13:27] VITALS: BP 109/76; PULSE 86; TEMP 98.6
--- NOTE | 2018-07-21 14:13 | DS ---
[facility] Detox Discharge Summary Admission Date: 07/19/18 Discharge Date: 07/21/18 - History Present History: Alcohol Dependence Additional Comments: 47 years old male admitted on 07/19/18 for alcohol withdrawal stabilization after lunch and napping patient wants to leave the detox alert no acute distress denies suicidal ideation Pertinent Past History: aftercare [place] discuss risks of alcohol misuse strong recommend 12 step community self help group - Physical Exam Results Vital Signs: Vital Signs Temperature 98.6 F 07/21/18 13:26 Pulse Rate 86 07/21/18 13:26 Respiratory Rate 18 07/21/18 13:26 Blood Pressure 109/76 07/21/18 13:26 O2 Sat by Pulse Oximetry (%) Pertinent Admission Physical Exam Findings: alcohol withdrawal sx Laboratory Last Values WBC 8.5 K/mm3 (4.0-10.0) 07/20/18 07:00 RBC 4.88 M/mm3 (4.00-5.60) 07/20/18 07:00 Hgb 15.1 GM/dL (11.7-16.9) 07/20/18 07:00 Hct 44.4 % (35.4-49) 07/20/18 07:00 MCV 91.0 fl (80-96) 07/20/18 07:00 MCH 31.0 pg (25.7-33.7) 07/20/18 07:00 MCHC 34.1 g/dl (32.0-35.9) 07/20/18 07:00 RDW 13.6 % (11.9-15.9) 07/20/18 07:00 Plt Count 250 K/MM3 (134-434) 07/20/18 07:00 MPV 9.2 fl (7.5-11.1) D 07/20/18 07:00 Sodium 142 mmol/L (136-145) 07/20/18 07:00 Potassium 4.2 mmol/L (3.5-5.1) 07/20/18 07:00 Chloride 106 mmol/L (98-107) 07/20/18 07:00 Carbon Dioxide 30 mmol/L (21-32) 07/20/18 07:00 Anion Gap 6 MMOL/L (8-16) L 07/20/18 07:00 BUN 19 mg/dL (7-18) H 07/20/18 07:00 Creatinine 1.1 mg/dL (0.55-1.3) 07/20/18 07:00 Creat Clearance w eGFR 71.75 (>60) 07/20/18 07:00 Random Glucose 94 mg/dL (74-106) 07/20/18 07:00 Calcium 8.6 mg/dL (8.5-10.1) 07/20/18 07:00 Total Bilirubin 0.7 mg/dL (0.2-1) 07/20/18 07:00 AST 17 U/L (15-37) 07/20/18 07:00 ALT 22 U/L (13-61) 07/20/18 07:00 Alkaline Phosphatase 76 U/L (45-117) 07/20/18 07:00 Total Protein 7.3 g/dl (6.4-8.2) 07/20/18 07:00 Albumin 3.8 g/dl (3.4-5.0) 07/20/18 07:00 RPR Titer Nonreactive (NONREACTIVE) 07/20/18 07:00 lab noted - Treatment Hospital Course: Detox Protocol Followed, Responded well Patient has Accepted a Rehab Referral to: [facility] - Medication Discharge Medications: Ambulatory Orders Omeprazole 40 gm PO DAILY 07/20/18 - Diagnosis (1) Alcohol dependence with uncomplicated withdrawal Current Visit: Yes Status: Acute (2) Nicotine dependence Current Visit: Yes Status: Acute Qualifiers: Nicotine product type: cigarettes Substance use status: in withdrawal Qualified Code(s): F17.213 - Nicotine dependence, cigarettes, with withdrawal - AMA Did Patient Leave Against Medical Advice: Yes
[2018-07-21] MEDS ORDERED: chlordiazePOXIDE HCL 10 MG CAPSULE PO PRN (23:00)
[2018-07-21] MEDS ORDERED: chlordiazePOXIDE HCL 10 MG CAPSULE PO SCH (23:00)
[2018-07-22] MEDS ORDERED: chlordiazePOXIDE HCL 10 MG CAPSULE PO SCH (23:00)
== END 2018-07-21 14:00 | disposition left against medical advice (07) | DRG 770 ==
LOC: YASAS 19:24 → Y3N 22:32
PROVIDERS: ADMIT Surgery; ATTEND Surgery
PROC: HZ2ZZZZ Detoxification Services for Substance Abuse Treatment (ICD-10-PCS; principal; 2018-07-19)
DX: F10.230 Alcohol dependence with withdrawal, uncomplicated (principal); F14.20 Cocaine dependence, uncomplicated; F12.20 Cannabis dependence, uncomplicated; F16.10 Hallucinogen abuse, uncomplicated; F17.213 Nicotine dependence, cigarettes, with withdrawal; F19.24 Other psychoactive substance dependence with psychoactive substance-induced mood disorder
CPT/HCPCS: 36415; 71046-TC-FY; 80053; 85027; 86593

== ENCOUNTER 2018-12-08 20:41 | Inpatient (IN) | payer OTHER ==
[2018-12-08 21:29] VITALS: BMI 30.3
--- NOTE | 2018-12-08 21:55 | HP ---
COWS - Scale Pupil Size: 0= Normal to Room Light CIWA Score Nausea/Vomitin Muscle Tremors: 4-Moderate,w/Arms Extend Anxiety: 4-Mod. Anxious/Guarded Agitation: 4-Moderately Restless Paroxysmal Sweats: 1-Minimal Palms Moist Orientation: 3-Disoriented Date>2 days Tacttile Disturbances: 0-None Auditory Disturbances: 0-None Visual Disturbances: 0-None Headache: 0-None Present CIWA-Ar Total Score: 18 - Admission Criteria OASAS Guidelines: Admission for Medically Managed Detox: Requires at least one of the followin. CIWA greater than 12 2. Seizures within the past 24 hours 3. Delirium tremens within the past 24 hours 4. Hallucinations within the past 24 hours 5. Acute intervention needed for co occurring medical disorder 6. Acute intervention needed for co occurring psychiatric disorder 7. Severe withdrawal that cannot be handled at a lower level of care (continued vomiting, continued diarrhea, abnormal vital signs) requiring intravenous medication and/or fluids 8. Admission ROS [facility] Chief Complaint: Alcohol withdrawal symptoms Allergies/Adverse Reactions: Allergies Allergy/AdvReac Type Severity Reaction Status Date / Time No Known Allergies Allergy Verified 12/08/18 21:18 History of Present Illness: 48 years old male with a long history of alcohol dependence ("since age 15 years old) is seeking admission to detox. Patient has been in previous detox and reports insignificant period of sobriety. He reports history of depression and PPD Positive. He denies suicide attempt / suicidal ideation at this time. Exam Limitations: No Limitations - Ebola screening Have you traveled outside of the country in the last 21 days: No (N) Have you had contact with anyone from an Ebola affected area: No Do you have a fever: No - Review of Systems Constitutional: Chills, Loss of Appetite, Malaise, Changes in sleep, Weakness EENT: reports: No Symptoms Reported Respiratory: reports: No Symptoms reported Cardiac: reports: No Symptoms Reported GI: reports: Nausea, Poor Appetite, Poor Fluid Intake, Vomiting (x 1), Abdominal cramping : reports: No Symptoms Reported Musculoskeletal: reports: No Symptoms Reported Integumentary: reports: No Symptoms Reported Neuro: reports: Tremors Endocrine: reports: No Symptoms Reported Hematology: reports: No Symptoms Reported Psychiatric: reports: Mood/Affect Appropiate, Orientated x3, Depressed Other Systems: Reviewed and Negative Patient History - Patient Medical History Hx Anemia: No Hx Asthma: No Hx Chronic Obstructive Pulmonary Disease (COPD): No Hx Cancer: No Hx Cardiac Disorders: No Hx Congestive Heart Failure: No Hx Hypertension: No Hx Hypercholesterolemia: No Hx Pacemaker: No HX Cerebrovascular Accident: No Hx Seizures: No Hx Diabetes: No Hx Gastrointestinal Disorders: No Hx Genitourinary Disorders: No Hx Sexually Transmitted Disorders: No Hx Renal Disease (ESRD): No Hx Thyroid Disease: No Hx Human Immunodeficiency Virus (HIV): No (Negative) Hx Hepatitis C: No Hx Depression: Yes (Not on medication) Hx Suicide Attempt: No (Denies suicide attempt/ suicidal ideation at th8is time ) Hx Bipolar Disorder: No Hx Schizophrenia: No - Patient Surgical History Past Surgical History: Yes Hx Neurologic Surgery: No Hx Cataract Extraction: No Hx Cardiac Surgery: No Hx Lung Surgery: No Hx Breast Surgery: No Hx Breast Biopsy: No Hx Abdominal Surgery: No Hx Appendectomy: No Hx Cholecystectomy: No Hx Genitourinary Surgery: No Hx Section: No Hx Orthopedic Surgery: No Other Surgical History: polyps removed from throat at 15 years old Anesthesia Reaction: No - PPD History Previous Implant?: No (PPD POSITIVE TREATED WITH INH FOR 6MONTHS) - Smoking Cessation Smoking history: Current every day smoker Have you smoked in the past 12 months: No Aproximately how many cigarettes per day: 20 Cigars Per Day: 0 Hx Chewing Tobacco Use: No Initiated information on smoking cessation: Yes 'Breaking Loose' booklet given: 12/08/18 - Substances abused Alcohol Other (specify): VODKA Substance route: Oral Frequency: Daily Amount used: 3 PINTS Age of first use: 14 Date of last use: 07/19/18 Cocaine Substance route: Smoking Frequency: Daily Amount used: $80 Age of first use: 15 Date of last use: 12/08/18 Crack Substance route: Smoking Frequency: Daily Amount used: 60 dollars Age of first use: 15 Date of last use: 12/08/18 Benzodiazepine (Klonopin) Substance route: Oral Frequency: Daily Amount used: 1 pill Age of first use: 46 Date of last use: 12/08/18 Ectasy Substance route: Oral Frequency: 1-3 times last 30 days Amount used: 1 pill Age of first use: 46 Date of last use: 12/07/18 Family Disease History - Family Disease History Family Disease History: Heart Disease: Mother (HTN), Other: Father (ESTRANGED), Mother Admission Physical Exam [facility] - Vital Signs Vital Signs: Vital Signs - 24 hr 12/08/18 21:18 Temperature 97.7 F Pulse Rate 95 H Respiratory 16 Rate Blood Pressure 146/88 - Physical General Appearance: Yes: Moderate Distress, Tremorous, Sweating, Anxious HEENTM: Yes: Within Normal Limits Respiratory: Yes: Normal Breath Sounds, No Respiratory Distress Neck: Yes: Supple Breast: Yes: Breast Exam Deferred Cardiology: Yes: Regular Rhythm, Regular Rate Abdominal: Yes: Normal Bowel Sounds Back: Yes: Normal Inspection Extremities: Yes: Within Normal Limits, Tremors Neurological: Yes: Alert, Normal Mood/Affect Integumentary: Yes: Warm Lymphatic: Yes: Within Normal Limits Cleared for Admission [facility] - Detox or Rehab [facility] Level of Care: Medically Managed Detox Regimen/Protocol: Librium Breathalyzer - Breathalyzer Breathalyzer: 0 Urine Drug Screen - Test Device Lot number: [id number] Expiration date: 09/11/20 - Control Is test valid?: Yes - Results Drug screen NEGATIVE: No Urine drug screen results: THC-Marijuana, ALICE-Cocaine, MET-Methamphetamine, AMP- Amphetamines Inpatient Rehab Admission - Rehab Decision to Admit Inpatient rehab admission?: No
[2018-12-08] MEDS ORDERED: MAGNESIUM HYDROX 2400MG/30ML ORAL SUSPENSION 30 ML CUP PO PRN (22:07)
[2018-12-08] MEDS ORDERED: NICOTINE POLACRILEX 2 MG GUM BUC PRN (22:07)
[2018-12-08] MEDS ORDERED: MAGNESIUM CITRATE 300 ML BOTTLE PO PRN (22:07)
[2018-12-08] MEDS ORDERED: METHOCARBAMOL 500 MG TABLET PO PRN (22:07)
[2018-12-08] MEDS ORDERED: BISMUTH SUBSALICYLATE 524 MG/30 ML UD PO PRN (22:07)
[2018-12-08] MEDS ORDERED: IBUPROFEN 400 MG TABLET (FP) PO PRN (22:07)
[2018-12-08] MEDS ORDERED: ACETAMINOPHEN 325 MG TABLET (FP) PO PRN ×2 (22:07)
[2018-12-08] MEDS ORDERED: chlordiazePOXIDE HCL 25 MG CAPSULE PO PRN (22:07)
[2018-12-08] MEDS ORDERED: MENTHOL/PHENOL 1 EACH UD MM PRN (22:07)
[2018-12-08] MEDS ORDERED: hydrOXYzine PAMOATE 25 MG CAPSULE (FP) PO PRN (22:07)
[2018-12-08] MEDS ORDERED: MAG HYDROX/AL HYDROX/SIMETH 30 ML UNIT-DOSE CUP PO PRN (22:07)
[2018-12-08] MEDS: chlordiazePOXIDE HCL 25 MG CAPSULE PO SCH (23:07)
[2018-12-08] MEDS: MELATONIN 5 MG TABLETS PO PRN (23:07)
[2018-12-09] MEDS: chlordiazePOXIDE HCL 25 MG CAPSULE PO SCH ×4 (07:58→22:11)
[2018-12-09] MEDS: NICOTINE 14 MG/24 HOURS TOPICAL PATCH TD SCH (10:09)
[2018-12-09] MEDS: PRENATAL VITAMINS W/ FOLIC ACID TABLET (FP) PO SCH (10:09)
[2018-12-09 10:10] LABS: HEMATOCRIT 40.9 % (35.4-49); HEMOGLOBIN 13.9 GM/dL (11.7-16.9); MCH 31.5 pg (25.7-33.7); MCHC 33.8 g/dl (32.0-35.9); MEAN CELL VOLUME 93.1 fl (80-96); MEAN PLT VOLUME 9.9 fl (7.5-11.1); PLATELET COUNT 226 K/MM3 (134-434); RDW 13.6 % (11.9-15.9); WHITE BLOOD COUNT 6.7 K/mm3 (4.0-10.0)
[2018-12-09 10:17] LABS: ALBUMIN 3.2 g/dl (3.4-5.0); BILIRUBIN,TOTAL 0.3 mg/dL (0.2-1); BLOOD UREA NITROGEN 17.2 mg/dL (7-18); CALCIUM 8.7 mg/dL (8.5-10.1); CREATININE 0.9 mg/dL (0.55-1.3); POTASSIUM 3.9 mmol/L (3.5-5.1); TOT PROT 6.2 g/dl (6.4-8.2)
--- NOTE | 2018-12-09 10:57 | EKG ---
Test Reason : Blood Pressure : / mmHG Vent. Rate : 069 BPM Atrial Rate : 069 BPM P-R Int : 146 ms QRS Dur : 084 ms QT Int : 384 ms P-R-T Axes : 021 051 039 degrees QTc Int : 411 ms NORMAL SINUS RHYTHM NORMAL ECG WHEN COMPARED WITH ECG OF 30-OCT-2016 16:34, NO SIGNIFICANT CHANGE WAS FOUND Confirmed by MITUL FERRO, ANGELES ([id number]) on 12/09/2018 10:56:46 AM Referred By: Damion Amaral Confirmed By:ANGELES BAUMAN MD
--- NOTE | 2018-12-09 11:30 | PN ---
S CIWA - CIWA Score Nausea/Vomitin Muscle Tremors: 2 Anxiety: 2 Agitation: 3 Paroxysmal Sweats: 1-Minimal Palms Moist Orientation: 0-Oriented Tacttile Disturbances: 0-None Auditory Disturbances: 0-None Visual Disturbances: 0-None Headache: 2-Mild CIWA-Ar Total Score: 12 S Progress Note (SOAP) Subjective: alert,irritable,anxious,interrupted sleep,tremor Objective: 12/09/18 11:28 Vital Signs Temperature 98.6 F 12/09/18 09:23 Pulse Rate 64 12/09/18 09:23 Respiratory Rate 18 12/09/18 09:23 Blood Pressure 101/55 L 12/09/18 09:23 O2 Sat by Pulse Oximetry (%) Laboratory Last Values WBC 6.7 K/mm3 (4.0-10.0) 12/09/18 07:00 RBC 4.40 M/mm3 (4.00-5.60) 12/09/18 07:00 Hgb 13.9 GM/dL (11.7-16.9) 12/09/18 07:00 Hct 40.9 % (35.4-49) 12/09/18 07:00 MCV 93.1 fl (80-96) 12/09/18 07:00 MCH 31.5 pg (25.7-33.7) 12/09/18 07:00 MCHC 33.8 g/dl (32.0-35.9) 12/09/18 07:00 RDW 13.6 % (11.9-15.9) 12/09/18 07:00 Plt Count 226 K/MM3 (134-434) 12/09/18 07:00 MPV 9.9 fl (7.5-11.1) 12/09/18 07:00 Sodium 142 mmol/L (136-145) 12/09/18 07:00 Potassium 3.9 mmol/L (3.5-5.1) 12/09/18 07:00 Chloride 108 mmol/L (98-107) H 12/09/18 07:00 Carbon Dioxide 28 mmol/L (21-32) 12/09/18 07:00 Anion Gap 6 MMOL/L (8-16) L 12/09/18 07:00 BUN 17.2 mg/dL (7-18) 12/09/18 07:00 Creatinine 0.9 mg/dL (0.55-1.3) 12/09/18 07:00 Est GFR (CKD-EPI)AfAm 116.65 12/09/18 07:00 Est GFR (CKD-EPI)NonAf 100.64 12/09/18 07:00 Random Glucose 91 mg/dL (74-106) 12/09/18 07:00 Calcium 8.7 mg/dL (8.5-10.1) 12/09/18 07:00 Total Bilirubin 0.3 mg/dL (0.2-1) 12/09/18 07:00 AST 12 U/L (15-37) L 12/09/18 07:00 ALT 19 U/L (13-61) 12/09/18 07:00 Alkaline Phosphatase 64 U/L (45-117) 12/09/18 07:00 Total Protein 6.2 g/dl (6.4-8.2) L 12/09/18 07:00 Albumin 3.2 g/dl (3.4-5.0) L 12/09/18 07:00 Assessment: 12/09/18 11:29 withdrawal symptom Plan: continue detox librium regimen
[2018-12-09] MEDS ORDERED: PNEUMOC 13-VAL CONJ-DIP CRM/PF 0.5 ML DISP.SYRIN IM ONE (12:00)
[2018-12-09] MEDS ORDERED: PNEUMOCOCCAL 23 VACCINE 0.5 ML VIAL IM ONE (12:00)
[2018-12-09] MEDS: THIAMINE HCL 100 MG TABLET (FP) PO SCH (22:10)
[2018-12-09] MEDS: MELATONIN 5 MG TABLETS PO PRN (22:10)
[2018-12-10] MEDS: chlordiazePOXIDE HCL 25 MG CAPSULE PO SCH ×4 (06:25→22:14)
[2018-12-10] MEDS: NICOTINE 14 MG/24 HOURS TOPICAL PATCH TD SCH (11:12)
[2018-12-10] MEDS: PRENATAL VITAMINS W/ FOLIC ACID TABLET (FP) PO SCH (11:12)
--- NOTE | 2018-12-10 11:15 | PN ---
S CIWA - CIWA Score Nausea/Vomitin Muscle Tremors: 2 Anxiety: 3 Agitation: 2 Paroxysmal Sweats: No Perspiration Orientation: 0-Oriented Tacttile Disturbances: 0-None Auditory Disturbances: 0-None Visual Disturbances: 0-None Headache: 1-Very Mild CIWA-Ar Total Score: 10 S Progress Note (SOAP) Subjective: alert,irritable,anxios,interrupted sleep,pain in the body Objective: 12/10/18 11:13 Vital Signs Temperature 97.7 F 12/10/18 09:35 Pulse Rate 76 12/10/18 09:35 Respiratory Rate 18 12/10/18 09:35 Blood Pressure 110/75 12/10/18 09:35 O2 Sat by Pulse Oximetry (%) Laboratory Last Values WBC 6.7 K/mm3 (4.0-10.0) 12/09/18 07:00 RBC 4.40 M/mm3 (4.00-5.60) 12/09/18 07:00 Hgb 13.9 GM/dL (11.7-16.9) 12/09/18 07:00 Hct 40.9 % (35.4-49) 12/09/18 07:00 MCV 93.1 fl (80-96) 12/09/18 07:00 MCH 31.5 pg (25.7-33.7) 12/09/18 07:00 MCHC 33.8 g/dl (32.0-35.9) 12/09/18 07:00 RDW 13.6 % (11.9-15.9) 12/09/18 07:00 Plt Count 226 K/MM3 (134-434) 12/09/18 07:00 MPV 9.9 fl (7.5-11.1) 12/09/18 07:00 Sodium 142 mmol/L (136-145) 12/09/18 07:00 Potassium 3.9 mmol/L (3.5-5.1) 12/09/18 07:00 Chloride 108 mmol/L (98-107) H 12/09/18 07:00 Carbon Dioxide 28 mmol/L (21-32) 12/09/18 07:00 Anion Gap 6 MMOL/L (8-16) L 12/09/18 07:00 BUN 17.2 mg/dL (7-18) 12/09/18 07:00 Creatinine 0.9 mg/dL (0.55-1.3) 12/09/18 07:00 Est GFR (CKD-EPI)AfAm 116.65 12/09/18 07:00 Est GFR (CKD-EPI)NonAf 100.64 12/09/18 07:00 Random Glucose 91 mg/dL (74-106) 12/09/18 07:00 Calcium 8.7 mg/dL (8.5-10.1) 12/09/18 07:00 Total Bilirubin 0.3 mg/dL (0.2-1) 12/09/18 07:00 AST 12 U/L (15-37) L 12/09/18 07:00 ALT 19 U/L (13-61) 12/09/18 07:00 Alkaline Phosphatase 64 U/L (45-117) 12/09/18 07:00 Total Protein 6.2 g/dl (6.4-8.2) L 12/09/18 07:00 Albumin 3.2 g/dl (3.4-5.0) L 12/09/18 07:00 RPR Titer Nonreactive (NONREACTIVE) 12/09/18 07:00 HIV 1&2 Ag/Ab, 4th Gen Non reactive (Non Reactive) 12/09/18 07:00 HIV 1&2 Antibody Screen Cancelled 12/09/18 07:00 HIV P24 Antigen Cancelled 12/09/18 07:00 Assessment: 12/10/18 11:14 withdrawal symptom Plan: continue detox librium regimen
[2018-12-10] MEDS: THIAMINE HCL 100 MG TABLET (FP) PO SCH (22:14)
[2018-12-10] MEDS: MELATONIN 5 MG TABLETS PO PRN (22:14)
[2018-12-11] MEDS ORDERED: chlordiazePOXIDE HCL 10 MG CAPSULE PO PRN
[2018-12-11] MEDS: chlordiazePOXIDE HCL 10 MG CAPSULE PO SCH ×2 (05:49→10:24)
[2018-12-11] MEDS: PRENATAL VITAMINS W/ FOLIC ACID TABLET (FP) PO SCH (10:24)
[2018-12-11] MEDS: NICOTINE 14 MG/24 HOURS TOPICAL PATCH TD SCH (10:24)
--- NOTE | 2018-12-11 10:39 | PN ---
S CIWA - CIWA Score Nausea/Vomitin-Mild Nausea/No Vomiting Muscle Tremors: 2 Anxiety: 1-Mildly Anxious Agitation: 2 Paroxysmal Sweats: No Perspiration Orientation: 0-Oriented Tacttile Disturbances: 0-None Auditory Disturbances: 0-None Visual Disturbances: 0-None Headache: 1-Very Mild CIWA-Ar Total Score: 7 BHS Progress Note (SOAP) Subjective: Patient is complaining of some withdrawals but already exhibits some relief. Objective: 12/11/18 10:36 BP:115/68 P:77 R:18 T:98.0 Laboratory 12/09/18 12/09/18 12/09/18 07:00 07:00 07:00 WBC 6.7 K/mm3 K/mm3 (4.0-10.0) RBC 4.40 M/mm3 M/mm3 (4.00-5.60) Hgb 13.9 GM/dL GM/dL (11.7-16.9) Hct 40.9 % % (35.4-49) MCV 93.1 fl fl (80-96) MCH 31.5 pg pg (25.7-33.7) MCHC 33.8 g/dl g/dl (32.0-35.9) RDW 13.6 % % (11.9-15.9) Plt Count 226 K/MM3 K/MM3 (134-434) MPV 9.9 fl fl (7.5-11.1) Sodium 142 mmol/L mmol/L (136-145) Potassium 3.9 mmol/L mmol/L (3.5-5.1) Chloride 108 mmol/L H mmol/L (98-107) Carbon Dioxide 28 mmol/L mmol/L (21-32) Anion Gap 6 MMOL/L L MMOL/L (8-16) BUN 17.2 mg/dL mg/dL (7-18) Creatinine 0.9 mg/dL mg/dL (0.55-1.3) Est GFR (CKD-EPI)AfAm 116.65 Est GFR (CKD-EPI)NonAf 100.64 Random Glucose 91 mg/dL mg/dL (74-106) Calcium 8.7 mg/dL mg/dL (8.5-10.1) Total Bilirubin 0.3 mg/dL mg/dL (0.2-1) AST 12 U/L L U/L (15-37) ALT 19 U/L U/L (13-61) Alkaline Phosphatase 64 U/L U/L (45-117) Total Protein 6.2 g/dl L g/dl (6.4-8.2) Albumin 3.2 g/dl L g/dl (3.4-5.0) RPR Titer Nonreactive (NONREACTIVE) HIV 1&2 Ag/Ab, 4th Gen HIV 1&2 Antibody Screen HIV P24 Antigen 12/09/18 12/09/18 07:00 07:00 WBC RBC Hgb Hct MCV MCH MCHC RDW Plt Count MPV Sodium Potassium Chloride Carbon Dioxide Anion Gap BUN Creatinine Est GFR (CKD-EPI)AfAm Est GFR (CKD-EPI)NonAf Random Glucose Calcium Total Bilirubin AST ALT Alkaline Phosphatase Total Protein Albumin RPR Titer HIV 1&2 Ag/Ab, 4th Gen Non reactive (Non Reactive) HIV 1&2 Antibody Screen Cancelled HIV P24 Antigen Cancelled Assessment: 12/11/18 10:38 1. Alcohol Dependence 2. Abnormal labs Plan: 1. Patient encouraged to drink more PO fluids. Continue librium detox protocol 2. Abnormal labs: Noted minor abnormalities No need for correction.
[2018-12-11 12:32] VITALS: BP 91/68; PULSE 75; TEMP 97.9
--- NOTE | 2018-12-11 15:53 | PN ---
[facility] Progress Note Note: pt states I want to get the fuck out of her because i don't need anything here. I rather go home. If you dont open my locker im going to break it. Pt complied with calming down and the risks of relapse were explained. discharge papers were provided and pt signed out AMA. security escorted pt off the unit.
--- NOTE | 2018-12-11 15:54 | DS ---
[facility] Detox Discharge Summary Admission Date: 12/08/18 - History Present History: Alcohol Dependence, Cannabis Dependence, Cocaine Dependence, Opioid Dependence, Pcp Dependence - Physical Exam Results Vital Signs: Vital Signs Temperature 97.9 F 12/11/18 12:31 Pulse Rate 75 12/11/18 12:31 Respiratory Rate 16 12/11/18 12:31 Blood Pressure 91/68 12/11/18 12:31 O2 Sat by Pulse Oximetry (%) Pertinent Admission Physical Exam Findings: arrived in withdrawals Laboratory Tests 12/09/18 12/09/18 12/09/18 07:00 07:00 07:00 WBC 6.7 RBC 4.40 Hgb 13.9 Hct 40.9 MCV 93.1 MCH 31.5 MCHC 33.8 RDW 13.6 Plt Count 226 MPV 9.9 Sodium 142 Potassium 3.9 Chloride 108 H Carbon Dioxide 28 Anion Gap 6 L BUN 17.2 Creatinine 0.9 Est GFR (CKD-EPI)AfAm 116.65 Est GFR (CKD-EPI)NonAf 100.64 Random Glucose 91 Calcium 8.7 Total Bilirubin 0.3 AST 12 L ALT 19 Alkaline Phosphatase 64 Total Protein 6.2 L Albumin 3.2 L RPR Titer Nonreactive HIV 1&2 Ag/Ab, 4th Gen HIV 1&2 Antibody Screen HIV P24 Antigen 12/09/18 12/09/18 07:00 07:00 WBC RBC Hgb Hct MCV MCH MCHC RDW Plt Count MPV Sodium Potassium Chloride Carbon Dioxide Anion Gap BUN Creatinine Est GFR (CKD-EPI)AfAm Est GFR (CKD-EPI)NonAf Random Glucose Calcium Total Bilirubin AST ALT Alkaline Phosphatase Total Protein Albumin RPR Titer HIV 1&2 Ag/Ab, 4th Gen Non reactive HIV 1&2 Antibody Screen Cancelled HIV P24 Antigen Cancelled pt signed out ama pt refused to continue detox. - Treatment Hospital Course: Discharged Condition Good Patient has Accepted a Rehab Referral to: refused aftercare - Medication Discharge Medications: Ambulatory Orders NK [No Known Home Medication] 12/08/18 - Diagnosis (1) Alcohol dependence with uncomplicated withdrawal Status: Acute (2) At risk for dehydration due to poor fluid intake Status: Acute (3) Nicotine dependence Status: Acute Qualifiers: Nicotine product type: cigarettes Substance use status: in withdrawal Qualified Code(s): F17.213 - Nicotine dependence, cigarettes, with withdrawal (4) PCP abuse, continuous Status: Acute (5) Sprain of wrist Status: Acute Qualifiers: Encounter type: initial encounter Laterality: right Qualified Code(s): S63.501A - Unspecified sprain of right wrist, initial encounter (6) Cannabis dependence, uncomplicated Status: Chronic (7) Cocaine dependence, uncomplicated Status: Chronic (8) Drug-induced mood disorder Status: Chronic (9) Opioid dependence with withdrawal Status: Chronic - AMA Did Patient Leave Against Medical Advice: Yes
[2018-12-12] MEDS ORDERED: chlordiazePOXIDE HCL 10 MG CAPSULE PO SCH (05:00)
[2018-12-13] MEDS ORDERED: chlordiazePOXIDE HCL 10 MG CAPSULE PO ONE (05:00)
== END 2018-12-11 14:19 | disposition left against medical advice (07) | DRG 770 ==
LOC: YASAS 20:41 → Y6N 22:33
PROVIDERS: ADMIT Surgery; ATTEND Surgery
PROC: HZ2ZZZZ Detoxification Services for Substance Abuse Treatment (ICD-10-PCS; principal; 2018-12-08)
DX: F11.23 Opioid dependence with withdrawal (principal); F10.230 Alcohol dependence with withdrawal, uncomplicated; F14.20 Cocaine dependence, uncomplicated; F16.20 Hallucinogen dependence, uncomplicated; F12.20 Cannabis dependence, uncomplicated; F17.210 Nicotine dependence, cigarettes, uncomplicated; F19.24 Other psychoactive substance dependence with psychoactive substance-induced mood disorder; F32.9 Major depressive disorder, single episode, unspecified; R76.11 Nonspecific reaction to tuberculin skin test without active tuberculosis; S63.501A Unspecified sprain of right wrist, initial encounter; X58.XXXA Exposure to other specified factors, initial encounter; Y93.89 Activity, other specified; Y92.89 Other specified places as the place of occurrence of the external cause; Y99.8 Other external cause status; Z91.19 Patient's noncompliance with other medical treatment and regimen
CPT/HCPCS: 36415; 80053; 85027; 86593; 87389; 90732; 93005; 93010; G0009

== ENCOUNTER 2019-11-17 10:43 | Emergency (ER) | payer SELFPAY ==
[2019-11-17 10:52] VITALS: BP 118/83; PULSE 78; TEMP 98.2; BMI 30.3
--- NOTE | 2019-11-17 11:45 | PDOC ---
History of Present Illness - General Chief Complaint: Pain Stated Complaint: LF ARM PAIN Time Seen by Provider: 11/17/19 11:32 - History of Present Illness Initial Comments: 11/17/19 11:41 49-year-old male with rectal pressure and left elbow pain x3 months no comorbidities. History of hemorrhoids Past History - Medical History Allergies/Adverse Reactions: Allergies Allergy/AdvReac Type Severity Reaction Status Date / Time No Known Allergies Allergy Verified 11/17/19 10:52 Home Medications: Ambulatory Orders Hydrocortisone Acetate [Anusol Hc Suppository -] 25 mg RC DAILY #14 supp.rect 08/24/19 Hydrocortisone Acetate [Anusol Hc Suppository -] 25 mg RC BID #28 supp.rect 11/17/19 Anemia: No Asthma: No Cancer: No Cardiac Disorders: No CVA: No COPD: No CHF: No Diabetes: No GI Disorders: No Disorders: No HTN: No Hypercholesterolemia: No Kidney Stones: No Seizures: No Thyroid Disease: No - Surgical History Abdominal Surgery: No Appendectomy: No Cardiac Surgery: No Cholecystectomy: No Lung Surgery: No Neurologic Surgery: No Orthopedic Surgery: No - Reproductive History Testicular Surgery: No - Psycho-Social/Smoking History Smoking History: Current every day smoker Have you smoked in the past 12 months: Yes Number of Cigarettes Smoked Daily: 20 Cigars Per Day: 0 Information on smoking cessation initiated: No 'Breaking Loose' booklet given: 12/08/18 - Substance Abuse Hx (Audit-C & DAST Scrn) How often the patient has a drink containing alcohol: Never Score: In Men: 4 or > Positive; In Women: 3 or > Positive: 0 Screen Result (Pos requires Nsg. Audit-10AR): Negative In the last yr the pt used illegal drug/Rx for NonMed reason: Yes Score: Yes response is considered Positive: 1 Screen Result (Positive result requires Nsg. DAST-10): Positive Review of Systems - Review of Systems ABD/GI: Yes: See HPI. No: Constipated, Diarrhea, Rectal Bleeding Musculoskeletal: Yes: Joint Pain *Physical Exam - Vital Signs Last Vital Signs Temp Pulse Resp BP Pulse Ox 98.2 F 78 17 118/83 100 11/17/19 10:49 11/17/19 10:49 11/17/19 10:49 11/17/19 10:49 11/17/19 10:49 - Physical Exam 08/05/20 11:42 Left elbow skin color and temperature normal range of motion is full. There is tenderness over the lateral epicondyle exacerbated with resisted wrist extension. No other areas of tenderness no instability upper extremity compartments are soft and nontender neurovascular intact There is a small external hemorrhoid at the 12 o'clock position not thrombosed. Medical Decision Making - Medical Decision Making 11/17/19 11:42 Anusol follow-up with GI anti-inflammatories follow-up with orthopedic surgery I have reviewed the pathophysiology with the patient. They are in agreement with the treatment plan all questions were answered to their satisfaction. Understanding for follow-up without fail was also conveyed to the patient. Again they are in agreement. Discharge - Discharge Information Problems reviewed: Yes Clinical Impression/Diagnosis: External hemorrhoid, Lateral epicondylitis of left elbow Condition: Stable Disposition: HOME - Admission No - Additional Discharge Information Prescriptions: Hydrocortisone Acetate [Anusol Hc Suppository -] 25 mg RC BID #28 supp.rect - Follow up/Referral Referrals: Maurice Storm DO [Staff Physician] - Santiago Rodarte DO [Staff Physician] - - Patient Discharge Instructions Additional Instructions: Please use the Anusol suppositories as directed. Tylenol and Motrin as directed for your elbow pain. High-fiber diet. Return to the emergency room for worsening symptoms. Without fail follow-up with orthopedic surgery as well as gastroenterology in 1 to 2 days for both your elbow pain and hemorrhoid. - Post Discharge Activity
== END 2019-11-17 11:47 | disposition home or self-care (01) ==
LOC: JERFT 10:43
DX: K64.9 Unspecified hemorrhoids (principal); M77.12 Lateral epicondylitis, left elbow
CPT/HCPCS: 99282-25